=== PATIENT | male | born 1990 | race Caucasian/White ===

== ENCOUNTER 2018-08-27 14:42 | Emergency (ER) | payer OTHER, SELFPAY ==
[2018-08-27 14:44] VITALS: BP 165/110; PULSE 122; RESP 18; TEMP 36.6; O2SAT 95; BMI 34.4
--- NOTE | 2018-08-27 14:48 | EKG12_ITS ---
Test Reason : CP Blood Pressure : / mmHG Vent. Rate : 113 BPM Atrial Rate : 113 BPM P-R Int : 154 ms QRS Dur : 084 ms QT Int : 340 ms P-R-T Axes : 049 -29 021 degrees QTc Int : 466 ms Sinus tachycardia Possible Left atrial enlargement Left ventricular hypertrophy Abnormal ECG Confirmed by SMITA CALDERON, SERAFIN ([id number]), marketing editor SILVIO COTE ([id number] on 08/30/2018 1:50:30 PM Referred By: MICHOACANO Confirmed By:SERAFIN ORDOÑEZ MD
--- NOTE | 2018-08-27 14:59 | NURSING ---
NO OLD EKGS
[2018-08-27 15:13] LABS: Absolute Lymphocyte Count 2.74 X10^3/ul (0.83-4.51); Absolute Neutrophil Count 4.1 X10^3/uL (2.0-7.7); Basophil# 0.02 X10^3/uL; Basophil% 0.3 % (0-1); Eosinophil# 0.11 X10^3/uL; Eosinophils% 1.5 % (0-5); Hematocrit 49.4 % (40-54); Lymphocyte # 2.74 X10^3/ul (4.0); Lymphocyte % 36.5 % (19-41); Mean Corp Hgb Conc 34.4 g/gl (32-36); Mean Corpuscular Hgb 29.8 pg (27.0-32.0); Mean Corpuscular Volume 86.5 fL (80-94); Mean Platelet Vol. 10.2 fl (6.2-12.0); Monocyte# 0.56 X10^3/uL; Monocyte% 7.5 % (0-10); Neutrophil # 4.06 X10^3/uL (2.7-7.7); Neutrophil % 53.9 % (47-70); Platelet Count 214 K/mm3 (150-450); RBC Distribution Width CV 12.1 % (11.6-14.6); RBC Distribution Width SD 38.5 fl (35.1-43.9); Red Blood Count 5.71 M/mm3 (4.6-6.2); White Blood Count 7.5 K/mm3 (4.4-11.0)
[2018-08-27 15:14] LABS: POSITIVE COUNT NO; POSITIVE DIFFERENTIAL NO; POSITIVE MORPHOLOGY NO
[2018-08-27 15:28] LABS: International Normalized Ratio 1.1
[2018-08-27 15:32] LABS: Anion Gap 12 (5-15); BUN 17 mg/dL (7-18); BUN/Creat Ratio 14.5 RATIO (10-20); Calcium,Total 10.4 mg/dL (8.5-10.1); Chloride 103 mmol/L (98-107); Creatinine, Serum 1.17 mg/dL (0.70-1.30); EST Glomerular Filtration Rate 78 mL/min (>60); Est Glom Filt Rate - Afr Amer 95 mL/min (>60); Estimated Creatinine Clearance 106.23 ml/min; Glucose 93 mg/dL (74-106); Potassium 3.6 mmol/L (3.5-5.1); Sodium Level 143 mmol/L (136-145)
--- NOTE | 2018-08-27 15:33 | RAD_ITS ---
STUDY: X-RAY CHEST REASON FOR EXAM: Male, 27 years old. Chest pain. TECHNIQUE: PA and lateral views of the chest. COMPARISON: None. FINDINGS: The lungs are clear and expanded. There is no demonstrated pleural abnormality. Normal size heart. Normal mediastinum and anushka. Normal visualized pulmonary arteries. Normal visualized aortic arch and descending thoracic aorta. Normal visualized thoracic spine. Normal visualized ribs, clavicles, and shoulders. There is no demonstrated abnormality of the visualized soft tissue structures of the upper abdomen. RAD/Chest PA and Lateral IMPRESSION: Normal x-ray examination of the chest. Electronically Signed: Ramesh Farmer, at 15:53 EST , Service support ,
--- NOTE | 2018-08-27 16:04 | ED.DCSUM_ITS ---
- ER Visit Summary Date of Service: 08/27/18 Chief Complaint: Chest pain History of Present Illness: The patient is a 27 M who sees Mel Coto. He reports that his chest pain began approximately 3 weeks ago. Sick continuous sharp pain that waxes and wanes. It is 7 out of 10 at worst and 2 out of 10 cu rrently. Is worsened by movement of his torso, coughing, or standing. There is been no change with exertion or breathing. She relieved by remaining still. He denies any associated nausea, vomiting, diaphoresis, or shortness of breath. He has never had anything like this before. No personal family history of DVT. No recent travel. No ankle swelling or calf pain. He denies any trauma. No fall, MVA, or change in activity. Physical Examination: Vitals: Stable. Afebrile. General: Well-nourished and well-developed. Head: Normocephalic atraumatic. Neck: Supple, no lymphadenopathy. No JVD. Nontender. Cardiovascular: Regular rate and rhythm. No murmurs. Respiratory: No respiratory distress. Clear to auscultation bilaterally. Abdominal: Soft, nontender, nondistended, normal bowel sounds. No guarding, rebound, or peritoneal signs. Back: Nontender. Extremities: Nontender, no edema. Skin: Normal color, no rash. Neurologic: Alert and oriented ?3. Cranial nerves II through XII are intact. Normal strength and sensation. Psych: Normal affect. Test Results: EKG is sinus tach at [address] changes. Troponin is negative. D-dimer is negative. TSH is normal. Chem-7 is more for calcium of 10.4. CBC is more for hemoglobin of 17.0. Chest x-ray is normal. Emergency Department Course and Treatment: Patient was given a liter of normal saline. He refused pain medications. He is resting comfortably. Treatment Plan: Patient will be discharged symptomatic care. Use Tylenol/ibuprofen for pain. Follow-up with Mel Coto within 3-5 days for another exam. Return to the emergency department for any worsening symptoms. Disposition: To home in improved and stable condition. Impression: 1. Atypical chest pain. This note was generated with [employer] software. It may contain incorrect words, spelling, and punctuation that were not noted in review of the chart prior to signing ED Disposition - Plan for ED Patient: Instructions: ED Chest Pain Atypical Unkn Cause Referrals: Mel Cantrell DO [Primary Care Provider] - 3-5 Days
[2018-08-27 16:23] VITALS: PULSE 95; RESP 18; O2SAT 99
[2018-08-27 16:30] LABS: Thyroid Stim Hormone (TSH) 2.41 uIU/mL (0.358-3.74)
[2018-08-27] MEDS: 0.9% Normal Saline 1,000 ML 1000 ML IV (16:30)
[2018-08-27 16:52] LABS: D-Dimer Quantitative (DVT/PE) < 0.27 FEU/ug/m (0.27-0.49)
[2018-08-27 17:07] VITALS: BP 167/102; PULSE 87; RESP 14; O2SAT 96
== END 2018-08-27 17:22 | disposition home or self-care (01) ==
LOC: ED 16:04
PROVIDERS: Emergency Provider Emergency Medicine
DX: R07.89 Other chest pain (principal)
CPT/HCPCS: 71046; 80048; 84443; 84484; 85025; 85379; 85610; 93005; 96360; 99284; J7030; A4216

== ENCOUNTER → 2019-04-29 06:47 | Outpatient (CLI) | payer OTHER, SELFPAY ==
[2019-04-29 07:38] LABS: ALB/GLOB Ratio 1.1 RATIO (0.9-2.4); AST(SGOT) 60 U/L (15-37); Alanine Aminotransfer ALT/SGPT 153 U/L (16-61); Albumin, Serum 4.1 g/dL (3.2-5.0); Alkaline Phosphatase 39 U/L (45-117); Anion Gap 9 (5-15); BUN 18 mg/dL (7-18); BUN/Creat Ratio 15.5 RATIO (10-20); Calcium,Total 9.1 mg/dL (8.5-10.1); Chloride 104 mmol/L (98-107); Cholesterol 177 mg/dL (200); Creatinine, Serum 1.16 mg/dL (0.70-1.30); EST Glomerular Filtration Rate 79 mL/min (>60); Est Glom Filt Rate - Afr Amer 95 mL/min (>60); Globulin 3.8 g/dL (2.2-4.2); Glucose 99 mg/dL (74-106); High Density Lipoprotein 29 mg/dL; Potassium 4.2 mmol/L (3.5-5.1); Protein, Total 7.9 g/dL (6.4-8.2); Sodium Level 141 mmol/L (136-145); Triglycerides 240 mg/dL; Very Low Density Lipoprotein 48 mg/dL (5-40)
== END ==
PROVIDERS: Family Provider Student in an Organized Health Care Education/Training Program; PCP Student in an Organized Health Care Education/Training Program; Referring Provider Student in an Organized Health Care Education/Training Program; Visit Provider Student in an Organized Health Care Education/Training Program
DX: Z13.6 Encounter for screening for cardiovascular disorders (principal); R03.0 Elevated blood-pressure reading, without diagnosis of hypertension
CPT/HCPCS: 36415; 80053; 80061